=== PATIENT | female | born 1980 | race Caucasian/White ===

== ENCOUNTER 2016-07-13 08:31 | Outpatient (CLI) | payer SELFPAY ==
[2016-07-13] VITALS (17 sets, daily range): BP systolic 91–111; BP diastolic 51–77
[2016-07-13 10:53] LABS: ABO BLOOD TYPE O; ANTIHUMAN GLOB CROSSMATCH COMPAT; RH BLOOD TYPE POSITIVE
[2016-07-13 10:54] LABS: ANTIHUMAN GLOB CROSSMATCH COMPAT
[2016-07-13 16:09] LABS: HEMOGLOBIN 10.2 g/dL (12.2-16.2)
== END 2016-07-13 16:30 | disposition home or self-care (01) ==
LOC: COP 08:31
PROVIDERS: Family Medicine
DX: D50.9 Iron deficiency anemia, unspecified (principal)
CPT/HCPCS: P9016

== ENCOUNTER → 2016-07-17 | Outpatient (CLI) | payer OTHER ==
[2016-07-17 19:11] LABS: STOOL OCCULT BLOOD NEGATIVE (NEG)
== END ==
LOC: LAB 17:40
PROVIDERS: Physician Assistant
DX: D50.9 Iron deficiency anemia, unspecified (principal)

== ENCOUNTER → 2017-03-10 | Outpatient (CLI) | payer BC ==
--- NOTE | 2017-03-10 18:28 | RADIOLOGY REPORT PS360 ---
WRIST-3 VIEWS-RT HISTORY: RIGHT WRIST PAIN ORDERING PHYSICIAN: Virgilio Chapa MD PATIENT AGE: 36 years COMPARISON: None FINDINGS: No fracture or dislocation. No lytic or blastic change. There is normal mineralization.. The joint spaces are well-preserved. No significant degenerative/arthritic changes. No erosive changes evident.. IMPRESSION: Negative wrist
== END ==
LOC: RAD 16:30
DX: M25.531 Pain in right wrist (principal)